=== PATIENT | male | born 2000 | race Caucasian/White ===

== ENCOUNTER 2023-03-23 03:31 | Emergency (ER) | payer MEDICAID, SELFPAY ==
[2023-03-23 03:34] VITALS: BP 167/81; PULSE 99; RESP 20; TEMP 36.7; O2SAT 99; BMI 41.1
--- NOTE | 2023-03-23 03:55 | ED.GENADULT ---
HPI - General Adult General Chief complaint: Ear/Nose/Throat Problem Stated complaint: R ear pain/fever Time Seen by Provider: 03/23/23 03:36 Source: patient History of Present Illness HPI narrative: 22-year-old male presents to the emergency department with a 4 day history of right ear pain in the middle of the night. The rationale for why he was not evaluated in clinic or urgent care is unclear. There has been no drainage. No bleeding. He thinks that he had a low-grade fever yesterday but none today. He tried taking ibuprofen 9 hours ago that did not adequately relieve his pain. Has not tried Tylenol. No warm or cold compresses. No sore throat. Does have some mild nasal congestion. No cough, no GI symptoms, no rash. No injury or trauma. Nursing notes reviewed. Reports that he has had ear infections in the past as an adult but no prior ear surgeries or specialty follow-up. Past medical history benign per his report. Denies major long-term health problems, no allergies, nonsmoker. ROS notable for the HEENT and generalized symptoms as above only, otherwise denies times 12 systems. Related Data Home Medications Medication Instructions Recorded Confirmed No Known Home Medications 03/23/23 03/23/23 Allergies Allergy/AdvReac Type Severity Reaction Status Date / Time No Known Drug Allergies Allergy Verified 03/23/23 03:36 Exam Const: Vital Signs, click to edit/add: Vital Signs - 24 hr 03/23/23 03:34 Temperature 98.0 F Pulse Rate [Right Pulse Oximeter] 99 Respiratory Rate 20 Blood Pressure [Ri ght Upper Arm] 167/81 H Pulse Oximetry 99 Oxygen Delivery Me thod Room Air Documenting provider has reviewed patient's vital signs: yes Common normals: no apparent distress and alert HENMT: Common normals: normocephalic Head and scalp: normocephalic Face and sinus: normal facial exam Throat: posterior oropharynx normal Other: Both ear canals have moderate seborrheic dermatitis with no features of infection in the ear canals. The left TM is normal. The right TM is red dull and bulging with loss of light reflex and injected. No signs of perforation. Eye: Common normals: conjunctivae normal General eye: normal appearance of both eyes Conjunctiva: conjunctiva(e) normal Neck & C-Spine: Common normals: full ROM and no lymphadenopathy Resp: Common normals: normal respiratory effort and clear to auscultation bilaterally Effort & inspection: able to speak in complete sentences Auscultation: clear to auscultation bilaterally Cardio: Common normals: regular rate, regular rhythm, S1 normal heart sound and S2 normal heart sound Rate: regular rate Rhythm: regular rhythm Heart sounds: S1 normal and S2 normal Neuro: Common normals: moves all extremities Sensorium/orientation: alert Speech: speech normal Psych: Appearance: grossly normal Attitude: engaged Insight: insight good Judgement: judgment good Course Course ED Course: Otitis media discussed, counseled that this could be viral or bacterial. He is interested in antibiotic treatment. I recommended Bactrim due to his penicillin allergy 1 pill 2 times daily for 10 days. Discussed Tylenol and ibuprofen for pain control, may return to all typical work and school activities today. If not improving after 3 full days of antibiotic therapy, consider repeat evaluation in the clinic. Alarm symptoms reviewed that would warrant 80 presentation. Vital Signs Vital signs: Initial Vital Signs Temperature 98.0 F 03/23/23 03:34 Temperature Source Temporal Artery Scan 03/23/23 03:34 Pulse Rate 99 03/23/23 03:34 Respiratory Rate 20 03/23/23 03:34 Blood Pressure 167/81 H 03/23/23 03:34 Blood Pressure Mean 109 H 03/23/23 03:34 Blood Pressure Position Sitting 03/23/23 03:34 Pulse Oximetry 99 03/23/23 03:34 Oxygen Delivery Method Room Air 03/23/23 03:34 Vital Signs Temperature 98.0 F 03/23/23 03:34 Pulse Rate 99 03/23/23 03:34 Respiratory Rate 20 03/23/23 03:34 Blood Pressure 167/81 H 03/23/23 03:34 Pulse Oximetry 99 03/23/23 03:34 Oxygen Delivery Method Room Air 03/23/23 03:34 Temperature 98.0 F 03/23/23 03:34 Pulse Rate 99 03/23/23 03:34 Respiratory Rate 20 03/23/23 03:34 Blood Pressure 167/81 H 03/23/23 03:34 Pulse Oximetry 99 03/23/23 03:34 Oxygen Delivery Method Room Air 03/23/23 03:34 Discharge Plan Discharge Clinical Impression: Otitis media Patient Disposition: Home w/ Parent or Adult Condition: Stable Instructions: Ear Infection (ED) Additional Instructions: As we discussed, you do have a mild ear infection on the right side. I have started you on an antibiotic called Bactrim because your allergic to penicillins. Take 1 pill 2 times daily for total of 10 days. Drink lots of fluids. For pain, use Tylenol 1000 mg every 6 hours and or ibuprofen 600 mg every 6 hours. It is okay to use warm and cold compresses. If you have difficulty sleeping due to pain, it is okay to use Benadryl 25-50 mg at bedtime and or melatonin 5-10 mg nightly to sleep. If symptoms are not improving by Wednesday morning, I would recommend re-evaluation. It will take 2 weeks for the ear infection to heal completely. Activity Level: No Restrictions Discharge Diet: Regular Prescriptions: No Action No Known Home Medications Stand Alone Forms: [employer] Info Instructions
[2023-03-23 04:00] VITALS: BP 154/84; PULSE 85; RESP 20; TEMP 36.7; O2SAT 99
[2023-03-23 04:02] VITALS: TEMP 36.7
[2023-03-23] MEDS: ACETAMINOPHEN 500 MG TABLET 1000 MG PO (04:02)
[2023-03-23 06:18] VITALS: BP 154/84; PULSE 85; RESP 20; TEMP 36.7
== END 2023-03-23 04:00 | disposition home or self-care (01) ==
LOC: ED 04:02
PROVIDERS: Emergency Provider Family Medicine
DX: H66.91 Otitis media, unspecified, right ear (principal)
CPT/HCPCS: 99283; A9270